=== PATIENT | female | born 1960 | race African-American/Black ===

== ENCOUNTER → 2019-01-31 | Outpatient (CLI) | payer BC | LOC: RAD 10:18 | DX: Z12.31 Encounter for screening mammogram for malignant neoplasm of breast (principal) ==

== ENCOUNTER → 2019-07-30 | Outpatient (CLI) | payer BC | LOC: ULTRA 09:33 | DX: R10.2 Pelvic and perineal pain (principal); Z88.2 Allergy status to sulfonamides ==

== ENCOUNTER → 2019-09-01 | Outpatient (CLI) | payer BC ==
[2019-09-01 09:31] LABS: CREATININE 0.8 mg/dL (0.6-1.0)
== END ==
LOC: CAT 08-27 14:35
PROVIDERS: Nurse Practitioner
DX: R10.32 Left lower quadrant pain (principal); R10.2 Pelvic and perineal pain; E78.49 Other hyperlipidemia; E11.9 Type 2 diabetes mellitus without complications

== ENCOUNTER → 2020-03-22 | Outpatient (CLI) | payer BC | LOC: RAD 09:29 | PROVIDERS: ATTEND Nurse Practitioner | DX: Z12.31 Encounter for screening mammogram for malignant neoplasm of breast (principal) ==

== ENCOUNTER → 2020-05-12 | Outpatient (CLI) | payer BC ==
[~2020-05-12] MED LIST: PROMETH-CODEIN 65 ML PO
== END ==
LOC: LAB 12:17
PROVIDERS: ATTEND Nurse Practitioner
DX: U07.1 COVID-19 (principal)

== ENCOUNTER 2020-05-13 15:06 | Emergency (ER) | payer BC ==
[~2020-05-13] VITALS: Ht 167.6 cm; Wt 68.0 kg
[2020-05-13] MEDS ORDERED: PROMETH-CODEIN 65 ML PO (17:45)
[2020-05-13 17:56] VITALS: BP 150/79
== END 2020-05-13 17:57 | disposition home or self-care (01) ==
LOC: ER 15:06
DX: U07.1 COVID-19 (principal); Z88.2 Allergy status to sulfonamides

== ENCOUNTER → 2020-05-31 | Outpatient (CLI) | payer BC | LOC: LAB 09:49 | PROVIDERS: ATTEND Nurse Practitioner | DX: U07.1 COVID-19 (principal) ==

== ENCOUNTER → 2021-01-18 | Outpatient (CLI) | payer BC | LOC: RAD 10:57 | PROVIDERS: ATTEND Nurse Practitioner | DX: M47.817 Spondylosis without myelopathy or radiculopathy, lumbosacral region (principal); M48.07 Spinal stenosis, lumbosacral region; M25.78 Osteophyte, vertebrae; Z88.2 Allergy status to sulfonamides ==

== ENCOUNTER → 2021-03-23 | Outpatient (CLI) | payer BC | LOC: BC 10:25 | PROVIDERS: ATTEND Nurse Practitioner | DX: Z12.31 Encounter for screening mammogram for malignant neoplasm of breast (principal) ==